=== PATIENT | female | born 1960 | race Caucasian/White ===

== ENCOUNTER 2020-04-29 22:00 | Emergency (ER) | payer MEDICAID ==
[~2020-04-29 22:00] MED LIST: ADVAIR 100/28 DISKU1 IH; CELEXA10 MG PO; DESYREL DIVIDO150 M1 PO; DOMPERIDONE10 MG/CAP PO; FLEXERIL10 MG PO; HYDROXYZINE HCL25 MG PO; NAPROXEN500 MG PO; PRILOSEC 20MG20 MG PO; PROVENTIL0.09 MG/A1 IH
[2020-04-29] MEDS ORDERED: NEURONTIN300 MG/CAP PO (22:30)
[2020-04-29] MEDS ORDERED: ZESTRIL5 M1 PO (22:31)
[2020-04-29] MEDS ORDERED: PANTOPRAZOLE SO40 MG PO (22:31)
[2020-04-29] MEDS ORDERED: BUSPIRONE5 MG PO (22:31)
[2020-04-29 22:32] LABS: EOS # 0.3 (0.04-0.40); HEMATOCRIT 41.4 % (37.0-47.0); HEMOGLOBIN 13.8 g/dL (12.5-16.0); LYMPH# 2.5 (1.50-4.00); MEAN CELL VOLUME 90 fl (78-100); MEAN CORPUSCULAR HEMOGLOBIN 30 pg (27-31); MEAN CORPUSCULAR HGB CONC 33 g/dL (33-37); MONO # 0.5 (0.20-0.80); NEU # 2.8 (1.40-6.50); PLATELET COUNT 303 K/mm3 (130-400); RED BLOOD COUNT 4.58 M/mm3 (4.10-5.30); RED CELL DISTRIBUTION WIDTH 13.1 % (11.5-14.5); WHITE BLOOD COUNT 6.2 K/mm3 (4.8-10.8)
[2020-04-29] MEDS ORDERED: SUCRALFATE1 G1 PO (22:32)
[2020-04-29] MEDS ORDERED: LIDOCAINE1 EACH TP (22:32)
[2020-04-29] MEDS ORDERED: ACETAMINOPHEN-H1 TA2 PO (22:34)
[2020-04-29] MEDS ORDERED: DULOXETINE60 MG PO (22:35)
[2020-04-29 22:39] LABS: ALBUMIN 4.2 g/dL (3.5-5.0)
[2020-04-29 22:40] LABS: POTASSIUM 3.7 mmol/L (3.5-5.1); SODIUM 141 mmol/L (136-145)
[2020-04-29 22:42] LABS: GLUCOSE 116 mg/dL (65-105); TOTAL PROTEIN 7.2 g/dL (6.4-8.3)
[2020-04-29 22:43] LABS: CARBON DIOXIDE 22 mmol/L (22-29)
[2020-04-29 22:44] LABS: TOTAL BILIRUBIN 0.3 mg/dL (0.2-1.2)
[2020-04-29 22:47] LABS: AST-SGOT 10 U/L (5-34)
[2020-04-29 22:48] LABS: ALT/SGPT 6 U/L (0-55)
[2020-04-29 22:56] LABS: TROPONIN-I < 0.03 ng/mL (<0.030)
[2020-04-29 23:22] LABS: URINE APPEARANCE CLEAR; URINE BILIRUBIN NEGATIVE (NEGATIVE); URINE BLOOD NEGATIVE (NEGATIVE); URINE COLOR YELLOW; URINE GLUCOSE NEGATIVE (NEGATIVE); URINE KETONE NEGATIVE (NEGATIVE); URINE LEUKOCYTE ESTERASE NEGATIVE (NEGATIVE); URINE MUCUS PRESENT (NOT PRESENT); URINE NITRATE NEGATIVE (NEGATIVE); URINE PROTEIN(semi-quant) NEGATIVE (NEGATIVE); URINE UROBILINOGEN NORMAL (NORMAL)
[2020-04-30 00:02] VITALS: BP 128/75
== END 2020-04-30 00:02 | disposition home or self-care (01) ==
LOC: ED 22:00
PROVIDERS: Physician Assistant
DX: R07.89 Other chest pain (principal); I10 Essential (primary) hypertension; J44.9 Chronic obstructive pulmonary disease, unspecified; F17.210 Nicotine dependence, cigarettes, uncomplicated; Z90.49 Acquired absence of other specified parts of digestive tract; Z88.5 Allergy status to narcotic agent; Z88.1 Allergy status to other antibiotic agents
CPT/HCPCS: J1885

== ENCOUNTER 2024-04-19 13:06 | Emergency (ER) | payer MEDICAID ==
[~2024-04-19] VITALS: Wt 50.4 kg
[~2024-04-19 13:06] MED LIST changes: +ACETAMINOPHEN-H1 TA2 PO; +BUSPIRONE5 MG PO; +DULOXETINE60 MG PO; +LIDOCAINE1 EACH TP; +NEURONTIN300 MG/CAP PO; +PANTOPRAZOLE SO40 MG PO; +SUCRALFATE1 G1 PO; +ZESTRIL5 M1 PO
[2024-04-19] MEDS ORDERED: Naloxone 0.4 MG/ML VIAL IV ONE ×2 (13:09→13:35)
[2024-04-19 13:39] LABS: BASO # 0.02 K/mm3 (0.02-0.10); EOS # 0.86 K/mm3 (0.04-0.40); EOS % 11.2 % (1.0-5.0); HEMATOCRIT 39.7 % (37.0-47.0); HEMOGLOBIN 12.5 g/dL (12.5-16.0); LYMPH# 1.22 K/mm3 (1.50-4.00); MEAN CELL VOLUME 91 fl (78-100); MEAN CORPUSCULAR HEMOGLOBIN 29 pg (27-31); MEAN CORPUSCULAR HGB CONC 32 g/dL (33-37); MEAN PLATELET VOLUME 9.7 fl (7.4-10.4); MONO # 0.79 K/mm3 (0.20-0.80); PLATELET COUNT 332 K/mm3 (130-400); RED BLOOD COUNT 4.36 M/mm3 (4.10-5.30); RED CELL DISTRIBUTION WIDTH 13.5 % (11.5-14.5); WHITE BLOOD COUNT 7.7 K/mm3 (4.8-10.8)
[2024-04-19] MEDS ORDERED: NALOXONE 0.4 MG IV ONE (13:45)
[2024-04-19 13:48] LABS: ALBUMIN 3.9 g/dL (3.4-4.8)
[2024-04-19 13:50] LABS: CALCIUM 9.9 mg/dL (8.3-10.5)
[2024-04-19 13:51] LABS: TOTAL PROTEIN 7.3 g/dL (6.2-8.1)
[2024-04-19 13:53] LABS: TOTAL BILIRUBIN 0.3 mg/dL (0.2-1.2)
[2024-04-19 13:54] LABS: URINE APPEARANCE CLEAR (CLEAR); URINE COLOR YELLOW (YELLOW)
[2024-04-19 13:56] LABS: URINE BILIRUBIN NEGATIVE (NEGATIVE); URINE BLOOD NEGATIVE (NEGATIVE); URINE GLUCOSE NEGATIVE (NEGATIVE); URINE KETONE NEGATIVE (NEGATIVE); URINE LEUKOCYTE ESTERASE NEGATIVE (NEGATIVE); URINE NITRATE NEGATIVE (NEGATIVE); URINE PROTEIN(semi-quant) NEGATIVE (NEGATIVE); URINE WBC 0-1 /hpf (0-3)
[2024-04-19 14:16] LABS: D-DIMER 0.72 mg/L FEU (0.15-0.50)
[2024-04-19 14:18] LABS: ACETAMINOPHEN < 1 ug/mL; ALCOHOL IN-HOUSE < 10 mg/dL (<10)
[2024-04-19] MEDS ORDERED: Iohexol 350 - 100 ML VIAL IV ONE (14:30)
[2024-04-19 18:56] VITALS: BP 132/76
== END 2024-04-19 18:57 | disposition short-term general hospital (02) ==
LOC: ED 13:06
PROVIDERS: Family Medicine
DX: R41.82 Altered mental status, unspecified (principal); R55 Syncope and collapse
CPT/HCPCS: J2310; J7120; Q9967